=== PATIENT | female | born 1935 | race Hispanic/Latino ===

== ENCOUNTER 2016-10-31 11:18 | Emergency (ER) | payer MEDICARE ==
[2016-10-31 12:20] LABS: Basophils % (Auto) 0.6 % (0.0-1.8); Eosinophils % (Auto) 1.3 % (0.0-4.3); Hematocrit 46.2 % (30.3-42.9); Hemoglobin 15.6 gm/dl (10.1-14.3); Mean Corpuscular HGB Conc 34 % (30-34); Mean Corpuscular Hemoglobin 31 pg (28-32); Mean Corpuscular Volume 93 fl (79-97); Platelet Count 306 K/mm3 (140-440); Red Blood Count 4.99 M/mm3 (3.65-5.03); Red Cell Distribution Width 13.8 % (13.2-15.2)
--- NOTE | 2016-10-31 12:23 | Emergency Department Report ---
Entered by NU ADKINS, acting as scribe for SARAHY TOM NP. Chief Complaint: Chest Pain Stated Complaint: CHEST DISCOMFORT/NAUSEA Time Seen by Provider: 10/31/16 11:53 - HPI History of Present Illness: Pt is a 40 y.o. female who presents to ED for evaluation of multiple sx including chest pain that started last night while at home and nausea that started this morning. Pt states she "just doesn't feel right". She denies abdominal pain or urinary sx. - ROS Review of Systems: Positive for chest pain and nausea Negative for abdominal pain and urinary sx - Exam Vital Signs: Vital Signs 10/31/16 11:38 Temperature 97.9 F Pulse Rate 103 H Respiratory 18 Rate Blood Pressure 157/76 O2 Sat by Pulse 96 Oximetry Physical Exam: PT looks well, non toxic. steady gait no chest wall or abd tenderness MSE screening note: Focused history and physical exam performed. Due to findings the following was ordered: Orders: EKG, labs, CXR ED Medical Decision Making - Lab Data Result diagrams: 10/31/16 12:05 ED Disposition for MSE Condition: Stable This documentation as recorded by the scribe,NU ADKINS,accurately reflects the service I personally performed and the decisions made by ,SARAHY TOM , SECRETARY OF STATE.
[2016-10-31 12:35] LABS: INR 1.04 (0.87-1.13)
[2016-10-31 12:36] LABS: Partial Thromboplastin Time 26.5 Sec. (24.2-36.6)
[2016-10-31 12:38] LABS: Anion Gap 19 mmol/L; Blood Urea Nitrogen 16 mg/dL (7-17); Calcium 9.3 mg/dL (8.4-10.2); Carbon Dioxide 23 mmol/L (22-30); Chloride 103.8 mmol/L (98-107); Lipase 48 units/L (13-60); Sodium 142 mmol/L (137-145); Total Protein 7.1 g/dL (6.3-8.2)
--- NOTE | 2016-10-31 13:11 | XRay Report ---
CHEST 2 VIEWS INDICATION: Chest pain. COMPARISON: None similar. FINDINGS: PA and lateral chest radiographs demonstrate normal cardiomediastinal silhouette. Emphysematous changes suspected with somewhat prominent lung markings/scarring inferiorly. No pleural effusions or CHF. Mild aortic knob calcifications. Demineralized bones with multilevel thoracic spondylosis. CONCLUSION: No significant acute chest process with underlying COPD/chronic lung changes suspected, as described. Please correlate. Thank you for the opportunity to participate in this patient's care.
[2016-10-31 13:13] LABS: Alanine Aminotransferase 19 units/L (7-56); Albumin 3.9 g/dL (3.9-5); Albumin/Globulin Ratio 1.2 %; Alkaline Phosphatase 70 units/L (35-129); Glucose 131 mg/dL (65-100)
[2016-10-31] MEDS ORDERED: CARAFATE PO ONE (13:58)
[2016-10-31] MEDS ORDERED: ZOFRAN ODT PO ONE (13:58)
[2016-10-31] MEDS ORDERED: ALUM-MAG HYDROX-SIMETH 200-200-20MG/5ML PO ONE (13:58)
--- NOTE | 2016-10-31 17:43 | Emergency Department Report ---
ED Chest Pain HPI - General Chief Complaint: Chest Pain Stated Complaint: CHEST DISCOMFORT/NAUSEA Time Seen by Provider: 10/31/16 11:53 Source: patient, RN notes reviewed Mode of arrival: Ambulatory Limitations: No Limitations - History of Present Illness Initial Comments: This is a 81-year-old female. She is previously unknown to me. Her primary care doctor is Dr Ventura Occupational Safety And Health Manager: Dr Pride The patient's past medical history includes chronic renal insufficiency, GERD/ reflux, pulmonary fibrosis. The patient presents to the ER today with complaint of chest pain. The chest pain is central, and does not radiate to the back, arms or neck. She has chronic shortness of breath, which she states is not new, worsening or different. There is no vomiting or diaphoresis. Had mild nausea which has since resolved. There is no leg pain. There is no leg swelling. No recent trips greater than 4 hours. No recent hospital admissions. Pain started last night. It has currently resolved. MD Complaint: chest pain -: Gradual Onset: during rest Pain Location: substernal Pain Radiation: none Severity: mild Severity scale (0 -10): 3 Quality: aching Consistency: now resolved Improves With: nothing Worsens With: nothing re: nausea Aspirin use within the Past 7 Days: (1) Yes - Related Data On Oral Contraceptives: No Previous Rx's Medication Instructions Recorded Last Taken Type Aspirin [Aspirin BABY CHEW TAB] 81 mg PO QDAY #30 tab.chew 10/31/16 Unknown Rx Allergies Allergy/AdvReac Type Severity Reaction Status Date / Time No Known Allergies Allergy Unverified 09/26/13 09:59 Heart Score - HEART Score History: Slightly suspicious EKG: Normal Age: > 65 Risk factors: 1-2 risk factors Troponin: < normal limit HEART Score: 3 ED Review of Systems ROS: Stated complaint: CHEST DISCOMFORT/NAUSEA Other details as noted in HPI Constitutional: denies: fever, malaise Eyes: denies: vision change ENT: denies: epistaxis Respiratory: see HPI. denies: cough Cardiovascular: chest pain Gastrointestinal: nausea. denies: abdominal pain Skin: denies: rash, lesions Neurological: denies: weakness Psychiatric: denies: anxiety ED Past Medical Hx - Past Medical History Previous Medical History?: Yes Hx GERD: Yes Hx Renal Disease: Yes (Renal insufficiency) Additional medical history: Pulmonary fibrosis, Back pain and herniated disc, Vaginal dleivery x 2 - Surgical History Past Surgical History?: Yes Additional Surgical History: Hysterectomy - Social History Smoking Status: Former Smoker Substance Use Type: Alcohol, Non Opiate Pain, Prescribed, Tranquilizers - Medications Home Medications: Home Medications Medication Instructions Recorded Confirmed Last Taken Type Aspirin [Aspirin BABY CHEW TAB] 81 mg PO QDAY #30 tab.chew 10/31/16 Unknown Rx ED Physical Exam - General Limitations: No Limitations General appearance: alert, in no apparent distress - Head Head exam: Present: atraumatic, normocephalic - Eye Eye exam: Present: normal appearance, EOMI. Absent: nystagmus - ENT ENT exam: Present: normal exam, normal orophraynx, mucous membranes moist, normal external ear exam - Neck Neck exam: Present: normal inspection, full ROM. Absent: tenderness, meningismus - Respiratory Respiratory exam: Present: normal lung sounds bilaterally. Absent: respiratory distress, wheezes, rales, rhonchi, stridor, chest wall tenderness, accessory muscle use, decreased breath sounds, prolonged expiratory - Cardiovascular Cardiovascular Exam: Present: regular rate, normal rhythm, normal heart sounds. Absent: bradycardia, tachycardia, irregular rhythm, systolic murmur, diastolic murmur, rubs, gallop - GI/Abdominal GI/Abdominal exam: Present: soft, normal bowel sounds. Absent: distended, tenderness, guarding, rebound, rigid, pulsatile mass - Extremities Exam Extremities exam: Present: normal inspection, full ROM, normal capillary refill. Absent: tenderness, pedal edema, joint swelling, calf tenderness - Back Exam Back exam: Present: normal inspection, full ROM. Absent: tenderness, CVA tenderness (R), CVA tenderness (L), muscle spasm, paraspinal tenderness, vertebral tenderness - Neurological Exam Neurological exam: Present: alert, oriented X3, other (Extraocular movements intact. Tongue midline. No facial droop. Facial sensation intact to light touch in the V1, V2, V3 distribution bilaterally. 5 and 5 strength in 4 extremities.. Sensation is intact to light touch in 4 extremities.). Absent: motor sensory deficit - Psychiatric Psychiatric exam: Present: normal affect, normal mood - Skin Skin exam: Present: warm, dry, intact, normal color. Absent: rash ED Course Vital Signs 10/31/16 10/31/16 10/31/16 11:38 13:27 13:30 Temperature 97.9 F Pulse Rate 103 H 79 75 Respiratory 18 12 17 Rate Blood Pressure 157/76 159/70 Blood Pressure [Right] O2 Sat by Pulse 96 98 Oximetry 10/31/16 10/31/16 10/31/16 13:40 13:50 14:00 Temperature 97.8 F Pulse Rate 70 77 74 Respiratory 9 L 12 17 Rate Blood Pressure 159/70 150/80 150/80 Blood Pressure 150/80 [Right] O2 Sat by Pulse 94 97 95 Oximetry 10/31/16 10/31/16 10/31/16 15:00 16:00 17:00 Temperature Pulse Rate 75 75 Respiratory 10 L 12 16 Rate Blood Pressure 130/65 141/60 134/70 Blood Pressure [Right] O2 Sat by Pulse 95 97 82 L Oximetry BRET score - Bret Score Age > 65: (0) No Aspirin use within the Past 7 Days: (0) No 3 or more CAD Risk Factors: (0) No 2 or more Angina events in past 24 hrs: (0) No Known CAD with more than 50% Stenosis: (0) No Elevated Cardiac Markers: (0) No ST Deviation Greater than 0.5mm: (0) No BRET Score: 0 ED Medical Decision Making - Lab Data Result diagrams: 10/31/16 12:05 10/31/16 12:05 Vital Signs 10/31/16 10/31/16 10/31/16 11:38 13:27 13:30 Temperature 97.9 F Pulse Rate 103 H 79 75 Respiratory 18 12 17 Rate Blood Pressure 157/76 159/70 Blood Pressure [Right] O2 Sat by Pulse 96 98 Oximetry 10/31/16 10/31/16 10/31/16 13:40 13:50 14:00 Temperature 97.8 F Pulse Rate 70 77 74 Respiratory 9 L 12 17 Rate Blood Pressure 159/70 150/80 150/80 Blood Pressure 150/80 [Right] O2 Sat by Pulse 94 97 95 Oximetry Lab Results 10/31/16 10/31/16 10/31/16 Range/Units 12:05 12:05 12:05 WBC 13.0 H (4.5-11.0) K/mm3 RBC 4.99 (3.65-5.03) M/mm3 Hgb 15.6 H (10.1-14.3) gm/dl Hct 46.2 H (30.3-42.9) % MCV 93 (79-97) fl MCH 31 (28-32) pg MCHC 34 (30-34) % RDW 13.8 (13.2-15.2) % Plt Count 306 (140-440) K/mm3 Lymph % (Auto) 32.3 (13.4-35.0) % Pope % (Auto) 6.2 (0.0-7.3) % Eos % (Auto) 1.3 (0.0-4.3) % Baso % (Auto) 0.6 (0.0-1.8) % Lymph # 4.2 (1.2-5.4) K/mm3 Pope # 0.8 (0.0-0.8) K/mm3 Eos # 0.2 (0.0-0.4) K/mm3 Baso # 0.1 (0.0-0.1) K/mm3 Seg Neutrophils % 59.6 (40.0-70.0) % Seg Neutrophils # 7.7 (1.8-7.7) K/mm3 PT 13.5 (12.2-14.9) Sec. INR 1.04 (0.87-1.13) APTT 26.5 (24.2-36.6) Sec. Sodium 142 (137-145) mmol/L Potassium 4.0 (3.6-5.0) mmol/L Chloride 103.8 (98-107) mmol/L Carbon Dioxide 23 (22-30) mmol/L Anion Gap 19 mmol/L BUN 16 (7-17) mg/dL Creatinine 1.3 H (0.7-1.2) mg/dL Estimated GFR 40 ml/min BUN/Creatinine Ratio 12.30 % Glucose 131 H (65-100) mg/dL Calcium 9.3 (8.4-10.2) mg/dL Total Bilirubin 0.30 (0.1-1.2) mg/dL AST 18 (5-40) units/L ALT 19 (7-56) units/L Alkaline Phosphatase 70 (35-129) units/L Troponin T < 0.010 (0.00-0.029) ng/mL Total Protein 7.1 (6.3-8.2) g/dL Albumin 3.9 (3.9-5) g/dL Albumin/Globulin Ratio 1.2 % Lipase 48 (13-60) units/L 10/31/16 Range/Units 14:08 WBC (4.5-11.0) K/mm3 RBC (3.65-5.03) M/mm3 Hgb (10.1-14.3) gm/dl Hct (30.3-42.9) % MCV (79-97) fl MCH (28-32) pg MCHC (30-34) % RDW (13.2-15.2) % Plt Count (140-440) K/mm3 Lymph % (Auto) (13.4-35.0) % Pope % (Auto) (0.0-7.3) % Eos % (Auto) (0.0-4.3) % Baso % (Auto) (0.0-1.8) % Lymph # (1.2-5.4) K/mm3 Pope # (0.0-0.8) K/mm3 Eos # (0.0-0.4) K/mm3 Baso # (0.0-0.1) K/mm3 Seg Neutrophils % (40.0-70.0) % Seg Neutrophils # (1.8-7.7) K/mm3 PT (12.2-14.9) Sec. INR (0.87-1.13) APTT (24.2-36.6) Sec. Sodium (137-145) mmol/L Potassium (3.6-5.0) mmol/L Chloride (98-107) mmol/L Carbon Dioxide (22-30) mmol/L Anion Gap mmol/L BUN (7-17) mg/dL Creatinine (0.7-1.2) mg/dL Estimated GFR ml/min BUN/Creatinine Ratio % Glucose (65-100) mg/dL Calcium (8.4-10.2) mg/dL Total Bilirubin (0.1-1.2) mg/dL AST (5-40) units/L ALT (7-56) units/L Alkaline Phosphatase (35-129) units/L Troponin T < 0.010 (0.00-0.029) ng/mL Total Protein (6.3-8.2) g/dL Albumin (3.9-5) g/dL Albumin/Globulin Ratio % Lipase (13-60) units/L - EKG Data -: EKG Interpreted by Me - EKG Data 10/31/16 17:42 EKG #1 demonstrates sinus, 86 bpm, normal axis, Q waves noted in the inferior leads, poor R wave progression, abnormal EKG, not morphologically consistent with STEMI. No prior EKG available for comparison. EKG #2 demonstrates sinus, 76 bpm, normal intervals, normal axis, persistent Q waves in the inferior leads, poor R-wave progression. - Radiology Data Radiology results: report reviewed, image reviewed X-ray of the chest demonstrates chronic findings, no acute disease. Chronic COPD/lung disease. - Medical Decision Making Differential diagnosis: GERD, gastritis, reflux, pneumonia, acute coronary syndrome Assessment and plan: 81-year-old female with chest pain and nausea. She is low risk by heart score, low risk by well's criteria with no pulmonary embolus or DVT risk factors. EKG nonspecific but unchanged 2, troponin negative. I contacted the roller engraver covering for her primary roller engraver, Dr. Lara. He informed me that the patient had a negative nuclear stress test January 2016. He further indicated that his group would be able to contact the patient and have her follow up by the end of the week for outpatient evaluation. I had an extensive discussion with the patient. Patient understands that she is at low risk for major adverse cardiac events. The patient prefers to follow up as an outpatient. I had an extensive discussion with the patient, and I did offer her inpatient admission, but the patient is reliable, and wants to follow up as an outpatient. She is concerned about iatrogenic sequela of admission, including DVT, slip and fall, C. difficile. Given that she recently had an ACS risk stratification, that she prefers to follow up, that her covering roller engraver indicated they will have her follow up by the end of the week, I believe that a plan of discharge with close outpatient follow-up is reasonable. The patient and I have reduced this decision through shared decision making. Critical care attestation.: If time is entered above; I have spent that time in minutes in the direct care of this critically ill patient, excluding procedure time. ED Disposition Clinical Impression: Chest pain Disposition: DC-01 TO HOME OR SELFCARE Is pt being admited?: No Does the pt Need Aspirin: No Condition: Stable Instructions: Chest Pain (ED) Additional Instructions: Continue current outpatient medications. I have specifically discussed your care with Dr. Lara, the roller engraver covering for your private roller engraver. His group indicated they will contact you to follow-up in the office by the end of the week. However, I do recommend that you contact them first thing in the morning to confirm and arrange this outpatient follow-up. Alternatively, you may follow-up with either of the listed digital asset specialist. Return to the ER right away with new pain, worsened pain, migration of pain, fevers, chills, confusion, shortness of breath, intractable nausea or vomiting, inability to tolerate liquid feeds. follow up with your roller engraver as follows Hien Martin MD Occupational Safety And Health Manager in the [place], [place] Address: [address] [place] [address] [id number], [place] [address] Suggest an edit Prescriptions: Aspirin [Aspirin BABY CHEW TAB] 81 mg PO QDAY #30 tab.chew Referrals: SHILPI VENTURA MD [Primary Care Provider] - 3-5 Days JOSEPH PECK MD [Staff Physician] - 3-5 Days DENVER HOWARD MD [Staff Physician] - 3-5 Days
[2016-10-31 18:16] VITALS: BP 134/70
== END 2016-10-31 18:17 | disposition home or self-care (01) ==
LOC: ED 11:18
DX: R07.9 Chest pain, unspecified (principal); K21.9 Gastro-esophageal reflux disease without esophagitis; Z87.891 Personal history of nicotine dependence; Z79.82 Long term (current) use of aspirin
CPT/HCPCS: 36415; 71020; 80053; 83690; 84484; 85025; 85610; 85730; 93005; 93010; Q0162

== ENCOUNTER 2016-11-23 09:37 | Outpatient (CLI) | payer MEDICARE ==
--- NOTE | 2016-11-23 10:50 | Mammography Report ---
BILATERAL MAMMOGRAM with CAD: HISTORY: Cancer screening. Comparison study is dated October 21, 2015 FINDINGS: There are scattered fibroglandular densities (approximately 25%-50% glandular). No mass, distortion, suspicious calcification, or skin change is seen. IMPRESSION: Negative mammogram. There is no mammographic evidence of malignancy. RECOMMENDATION: Follow-up per ACS guidelines. BI-RADS CATEGORY: 1 = Negative ACR BI-RADS MAMMOGRAPHIC CODES: 0 = Needs additional imaging evaluation; 1 = Negative; 2 = Benign; 3 = Probably benign; 4 = Suspicious; 5 = Malignant; 6 = Known biopsy-proven malignancy COMMENT: 1. Dense breast tissue, i.e., adenosis, fibrocystic changes, etc., may obscure an underlying neoplasm. 2. Approximately 10% of cancers are not detected with mammography. 3. A negative mammography report should not delay biopsy if a clinically suspicious mass is present. COMMENT: Patient follow-up letters are generated in [email or web address].
== END 2016-11-23 09:38 | disposition home or self-care (01) ==
LOC: MAMMO 09:37
PROVIDERS: ATTEND Family Medicine
DX: Z12.31 Encounter for screening mammogram for malignant neoplasm of breast (principal); Z87.891 Personal history of nicotine dependence
CPT/HCPCS: 77067; G0202

== ENCOUNTER 2017-11-26 12:47 | Outpatient (CLI) | payer MEDICARE ==
--- NOTE | 2017-11-27 13:22 | Mammography Report ---
BILATERAL DIGITAL SCREENING MAMMOGRAM with CAD: 11/26/17 12:47:00 CLINICAL: Routine screening. COMPARISON:11/23/16 FINDINGS: There are scattered areas of fibroglandular density.Scattered bilateral benign calcifications. No mass, architectural distortion or suspicious calcifications. IMPRESSION: No mammographic evidence of malignancy. BI-RADS CATEGORY: 2 -- Benign RECOMMENDATION: Routine mammographic screening in one year. COMMENT: Patient follow-up letters are generated by our [employer] application.
== END 2017-11-26 12:48 | disposition home or self-care (01) ==
LOC: MAMMO 12:47
PROVIDERS: ATTEND Family Medicine
DX: Z12.31 Encounter for screening mammogram for malignant neoplasm of breast (principal); K21.9 Gastro-esophageal reflux disease without esophagitis; Z87.891 Personal history of nicotine dependence; Z90.710 Acquired absence of both cervix and uterus
CPT/HCPCS: 77067